=== PATIENT | female | born 1990 | race Hispanic/Latino ===

== ENCOUNTER 2019-09-11 01:48 | Emergency (ER) | payer OTHER ==
[~2019-09-11] VITALS: Ht 157.5 cm; Wt 90.7 kg
[2019-09-11] MEDS ORDERED: ACETAMINOPHEN 325 MG TAB PO ONE (02:00)
[2019-09-11 02:14] LABS: INFLUENZAE A&B ANTIGEN (RAPID) NEGATIVE (NEGATIVE); STREPTOCOCCUS GRP A ANTIGEN NEGATIVE (NEGATIVE)
--- NOTE | 2019-09-11 02:48 | Diagnostic Imaging Report ---
EXAMINATION: CHEST SINGLE (PORTABLE) INDICATION: Cough, fever. COMPARISON: None FINDINGS: TUBES and LINES: None. LUNGS: Lungs are well inflated. Mild patchy left basilar opacity. No evidence of lobar pneumonia or pulmonary edema. PLEURA: No pleural effusion or pneumothorax. HEART AND MEDIASTINUM: The cardiomediastinal silhouette is unremarkable. BONES AND SOFT TISSUES: No acute osseous lesion. Soft tissues are unremarkable. UPPER ABDOMEN: No free air under the diaphragm. IMPRESSION: Mild patchy left basilar opacity, likely atelectasis. Infection is possible in the appropriate clinical setting. No evidence of lobar pneumonia. Signed by: Dr. Wanda James MD on 09/11/2019 2:45 AM
== END 2019-09-11 04:08 | disposition home or self-care (01) ==
LOC: ER 01:48 → FSED 04:08
DX: R50.9 Fever, unspecified (principal); R05 Cough; J20.9 Acute bronchitis, unspecified
CPT/HCPCS: 71045; 83518; 87070; 87400; 99284